=== PATIENT | male | born 1980 | race Two or more races ===

== ENCOUNTER 2023-03-17 13:27 | Emergency (ER) | payer MEDICAID ==
[~2023-03-17] VITALS: Ht 185.4 cm; Wt 93.0 kg
[2023-03-17 13:34] VITALS: O2SAT 100
[2023-03-17] MEDS ORDERED: KETOROLAC 60MG/2ML VIAL IM STA (13:37)
[2023-03-17] MEDS ORDERED: ONDANSETRON 4MG ODT PO STA (13:37)
[2023-03-17] MEDS ORDERED: OXYCODONE HCL/ACETAMINOPHEN 5/325MG TABLET PO ONE (13:45)
[2023-03-17 14:46] VITALS: BP 116/70; PULSE 66; RESP 16; TEMP 98.2
[2023-03-17] MEDS ORDERED: OXYC-100 MT ×2 (15:10→20:26)
== END 2023-03-17 15:45 | disposition home or self-care (01) ==
LOC: ER 13:27
DX: N20.1 Calculus of ureter (principal)
CPT/HCPCS: 99283; 96372; Q0162; J1885